=== PATIENT | female | born 1930 | race Caucasian/White ===

== ENCOUNTER → 2016-03-31 | Outpatient (CLI) | payer MEDICARE, OTHER | END | disposition home or self-care (01) | LOC: PCVCCLINIC 15:30 | PROVIDERS: ATTEND Internal Medicine Cardiovascular Disease | DX: I48.91 Unspecified atrial fibrillation (principal); K21.9 Gastro-esophageal reflux disease without esophagitis; I10 Essential (primary) hypertension; E78.5 Hyperlipidemia, unspecified | CPT/HCPCS: 80061; 93005; G0463 ==

== ENCOUNTER → 2016-10-15 | Outpatient (CLI) | payer MEDICARE, OTHER | END | disposition home or self-care (01) | LOC: PCVCCLINIC 14:06 | PROVIDERS: ATTEND Internal Medicine Cardiovascular Disease | DX: I48.91 Unspecified atrial fibrillation (principal); I10 Essential (primary) hypertension; E78.01 Familial hypercholesterolemia; K21.9 Gastro-esophageal reflux disease without esophagitis; E03.9 Hypothyroidism, unspecified; Z87.891 Personal history of nicotine dependence; Z88.8 Allergy status to other drugs, medicaments and biological substances | CPT/HCPCS: 80061; 93005; G0463 ==

== ENCOUNTER → 2017-08-03 | Outpatient (CLI) | payer MEDICARE, OTHER | END | disposition home or self-care (01) | LOC: PCVCCLINIC 13:58 | DX: I48.91 Unspecified atrial fibrillation (principal); I10 Essential (primary) hypertension; E78.5 Hyperlipidemia, unspecified; K21.9 Gastro-esophageal reflux disease without esophagitis; H91.93 Unspecified hearing loss, bilateral; Z87.891 Personal history of nicotine dependence; Z79.899 Other long term (current) drug therapy; Z88.8 Allergy status to other drugs, medicaments and biological substances | CPT/HCPCS: 80061; 93005; G0463 ==

== ENCOUNTER → 2018-05-25 | Outpatient (CLI) | payer MEDICARE, OTHER ==
--- NOTE | 2018-05-25 13:30 | PCVCIMAG ---
APPROVED REPORT Study performed: 05/25/2018 11:46:54 EXAM: Comprehensive 2D, Doppler, and color-flow Echocardiogram Patient Location: Echo lab Status: routine BSA: 1.76 HR: 95 bpmBP: 118/74 mmHg Rhythm: Atrial Fibrillation Other Information Study Quality: Adequate Risk Factors: Cardiac Risk Factors: HTN, Hyperlipidemia Indications Atrial Fibrillation 2D Dimensions IVSd: 9.67 (7-11mm)LVOT Diam: 19.75 (18-24mm) LVDd: 34.69 mm PWd: 8.78 (7-11mm)Ascending Ao: 31.00 (22-36mm) LVDs: 27.74 (25-40mm) Left Atrium: 28.61 (27-40mm) Aortic Root: 21.53 mm LV Single Plane 4CH: 49.08 % LV Single Plane 2CH: 43.49 % Biplane EF: 44.9 % Volumes Left Atrial Volume (Systole) Single Plane 4CH: 42.52 mLSingle Plane 2CH: 42.34 mL LA ESV Index: 28.00 mL/m2 Aortic Valve AoV Peak Jose Antonio.: 1.96 m/s AO Peak Gr.: 17.68 mmHgLVOT Max P.99 mmHg LVOT Max V: 0.96 m/s JÚNIOR Vmax: 1.50 cm2 Mitral Valve E/A Ratio: 1.0 MV Decel. Time: 1011.03 ms MV E Max Jose Antonio.: 1.10 m/s MV A Jose Antonio.: 1.06 m/s Pulmonary Valve PV Peak Gr.: 2.10 mmHg Tricuspid Valve TR Peak Jose Antonio.: 3.09 m/s TR Peak Gr.: 38.13 mmHg Left Ventricle The left ventricle is normal size. There is normal LV segmental wall motion. There is normal left ventricular wall thickness. Left ventricular systolic function is normal. The left ventricular ejection fraction is within the normal range. LVEF is 55-60%. This study is not technically sufficient to allow evaluation of the LV diastolic function due to atrial fibrillation. Right Ventricle The right ventricle is normal size. The right ventricular systolic function is normal. Atria Left atrium is mildly dilated. Right atrium is mildly dilated. Aortic Valve The Aortic valve is sclerotic. No aortic regurgitation is present. There is no aortic valvular stenosis. Mitral Valve The mitral valve is normal in structure. Mild mitral regurgitation. No evidence of mitral valve stenosis. Tricuspid Valve The tricuspid valve is normal in structure. Mild to moderate tricuspid regurgitation. Pulmonary artery pressure is 44mmHg. Pulmonic Valve The pulmonary valve is normal in structure. There is no pulmonic valvular regurgitation. Great Vessels The aortic root is normal in size. IVC is normal in size and collapses >50% with inspiration. Pericardium There is no pericardial effusion. <Conclusion> The left ventricle is normal size. LVEF is 55-60%. This study is not technically sufficient to allow evaluation of the LV diastolic function due to atrial fibrillation. The right ventricle is normal size. Left atrium is mildly dilated. Right atrium is mildly dilated. The Aortic valve is sclerotic. There is no aortic valvular stenosis. Mild mitral regurgitation. The mitral valve is normal in structure. Mild to moderate tricuspid regurgitation. Pulmonary artery pressure is 44mmHg. The aortic root is normal in size. There is no pericardial effusion.
== END | disposition home or self-care (01) ==
LOC: PCVCIMAG 12:10
PROVIDERS: ATTEND Internal Medicine Cardiovascular Disease
DX: I08.3 Combined rheumatic disorders of mitral, aortic and tricuspid valves (principal); I48.2 Chronic atrial fibrillation; I10 Essential (primary) hypertension; E78.01 Familial hypercholesterolemia; E78.5 Hyperlipidemia, unspecified; K21.9 Gastro-esophageal reflux disease without esophagitis; E03.9 Hypothyroidism, unspecified; Z87.891 Personal history of nicotine dependence
CPT/HCPCS: 36415; 80061; 93005; 93306; G0463